=== PATIENT | female | born 1960 | race Caucasian/White ===

== ENCOUNTER 2019-02-21 00:25 | Emergency (ER) | payer OTHER ==
[2019-02-21 00:35] VITALS: BP 120/61; PULSE 60; TEMP 97.6; BMI 21.4
--- NOTE | 2019-02-21 00:41 | PDOC ---
History of Present Illness - General Chief Complaint: Pain, Acute Stated Complaint: ABD PAIN/N/V Time Seen by Provider: 02/21/19 00:38 History Source: Patient Exam Limitations: No Limitations - History of Present Illness Initial Comments: 02/21/19 00:42 This is a 58-year-old female who comes in complaining of nausea and vomiting and right upper quadrant abdominal pain after eating cheese cake this evening. Patient denies history of similar symptoms in the past. Patient otherwise is healthy. Allergies: as per nursing notes Past Medical History: none Social history: Lives with family. No smoking. No alcohol. No illicit drugs. Surgical history: None General: No fevers or chills, no weakness, no weight loss HEENT: No change in vision. No sore throat,. No ear pain CardioVascular: no chest discomfort. No shortness of breath Respiratory:No cough, or wheezing. Gastrointestinal: + nausea, + vomiting, no diarrhea or constipation, No rectal bleeding, + abdominal pain Genitourinary: No dysuria, hematuria, or frequency Musculoskeletal: No joint or muscle pain or swelling Neurologic: No headache, vertigo, dizziness or loss of consciousness Psychiatric: nor depression Skin: No rashes or easy bruising Endocrine: no increased thirst or abnormal weight change Allergic: no skin or latex allergy All other systems reviewed and normal Exam: General: Well-nourished well-developed individual, no acute distress HEENT: Throat: Normal, tonsils normal, no erythema or exudate Neck: Supple, no meningeal signs, no lymphadenopathy Eyes::Pupils equal reactive and round, extraocular motion intact Chest: Nontender to palpation Cardiac: S1-S2 normal, regular rate and rhythm, no murmurs rubs or gallops Respiratory: Lungs clear to auscultation bilateral Abdomen: Soft, nondistended, normal bowel sounds, there is tenderness on palpation in the right upper quadrant, there is no guarding or rebound. Extremities: Warm, dry, no cyanosis, clubbing, or edema Skin: No rashes Neuro: Alert and oriented x3, CN II - XII intact, nonfocal exam with normal strength, normal sensation, normal reflexes, normal gait, Psych: Normal mood and affect Assessment and plan: This is a 58-year-old female who comes in complaining of right upper quadrant pain after eating cheese cake. Patient will require workup to rule out gallbladder causes. CBC, comp, lipase ordered in addition to that patient is given Toradol, Zofran and IV fluids, ultrasound was ordered 02/21/19 03:38 Ultrasound was negative for any gallstones or any gallbladder pathology however was positive for renal pathology. There is dilatation of the right proximal ureter and a nonobstructing use stone was seen within the superior pole of the right kidney Patient's symptoms are secondary to a gallstone on the right is also was not actually visualized however patient did not want to stay any longer for a CAT scan and prescriptions for Percocet and Zofran were sent to patient's pharmacy. Patient was told to follow-up with a urologist next week. Past History - Past Medical History Allergies/Adverse Reactions: Allergies Allergy/AdvReac Type Severity Reaction Status Date / Time ampicillin Allergy Verified 02/21/19 00:31 gluten Allergy Verified 02/21/19 00:30 levofloxacin [From Levaquin] Allergy Verified 02/21/19 00:31 sulfamethoxazole Allergy Verified 02/21/19 00:31 [From Bactrim] tetracycline Allergy Verified 02/21/19 00:31 trimethoprim [From Bactrim] Allergy Verified 02/21/19 00:31 Home Medications: Ambulatory Orders Ondansetron [Zofran *Odt*] 8 mg SL TID #20 od.tablet 02/21/19 Oxycodone HCl/Acetaminophen [Percocet 5-325 mg Tablet] 1 - 2 tab PO Q4H #20 tablet MDD 8 02/21/19 Cardiac Disorders: Yes (MURMUR, MVP) COPD: No - Suicide/Smoking/Psychosocial Hx Smoking History: Never smoked *Physical Exam - Vital Signs Last Vital Signs Temp Pulse Resp BP Pulse Ox 97.6 F 60 18 120/61 100 02/21/19 00:32 02/21/19 00:32 02/21/19 00:32 02/21/19 00:32 02/21/19 00:32 ED Treatment Course - LABORATORY CBC & Chemistry Diagram: 02/21/19 00:45 02/21/19 00:45 *DC/Admit/Observation/Transfer Diagnosis at time of Disposition: Renal colic on right side - Discharge Dispostion Disposition: HOME Condition at time of disposition: Stable Decision to Admit order: No - Referrals Referrals: Silvio Izaguirre MD [Staff Physician] - - Patient Instructions Additional Instructions: For the pain take Percocet one or 2 tablets as often as every 4-6 hours. In addition to the Percocet take ibuprofen 3 tablets 3 times a day with food. If you develop nausea take Zofran 1 tablet let it dissolve underneath your tongue. You do not need to swallow it Stay well-hydrated to keep the urine flowing. Follow-up with a urologist if you need a urologist call Dr. Samuel Return to the emergency department immediately with ANY new, persistent or worsening symptoms. Continue any medications as previously prescribed by your physician. You should follow up with your primary doctor as soon as possible regarding today's emergency department visit. . Please make sure your doctor reviews the results of your emergency evaluation. Thank you for coming to the Emergency Department today for your care. It was a pleasure to see you today. Please note that your evaluation is INCOMPLETE until you follow-up with your doctor. - Post Discharge Activity
[2019-02-21] MEDS ORDERED: morphine CARPU-JECT 2 MG/1 ML DISP.SYRIN IVPUSH ONE (00:42)
[2019-02-21] MEDS ORDERED: SODIUM CHLORIDE 1,000 ML IV ONE (00:42)
[2019-02-21] MEDS ORDERED: KETOROLAC TROMETHAMINE 30 MG/1 ML VIAL IVPUSH ONE (00:42)
[2019-02-21] MEDS ORDERED: ONDANSETRON 4 MG/2 ML VIAL IVPB ONE (00:42)
[2019-02-21] MEDS ORDERED: KETOROLAC TROMETHAMINE 30 MG/1 ML VIAL ONE (00:47)
[2019-02-21] MEDS ORDERED: ONDANSETRON 4 MG/2 ML VIAL ONE (00:48)
[2019-02-21] MEDS ORDERED: morphine SULFATE 4 MG/ML VIAL ONE (00:48)
[2019-02-21 01:27] LABS: BASO % 0.5 % (0-2.0); EOS % 1.7 % (0-4.5); HEMATOCRIT 37.4 % (32.4-45.2); HEMOGLOBIN 12.7 GM/dL (10.7-15.3); LYMPH % 27.9 % (8-40); MCH 31.5 pg (25.7-33.7); MCHC 33.9 g/dl (32.0-36.0); MEAN CELL VOLUME 92.9 fl (80-96); MEAN PLT VOLUME 9.6 fl (7.5-11.1); MONO % 6.5 % (3.8-10.2); NEUT % 63.4 % (42.8-82.8); PLATELET COUNT 194 K/MM3 (134-434); RBC 4.02 M/mm3 (3.60-5.2); RDW 13.6 % (11.6-15.6)
[2019-02-21 01:48] LABS: ALK PHOS 55 U/L (45-117); ANION GAP 7 MMOL/L (8-16); BILIRUBIN,TOTAL 1.2 mg/dL (0.2-1); BLOOD UREA NITROGEN 20 mg/dL (7-18); CALCIUM 9.3 mg/dL (8.5-10.1); CHLORIDE 104 mmol/L (98-107); CO2 28 mmol/L (21-32); CREATININE 1.1 mg/dL (0.55-1.3); GLUCOSE,RANDOM 117 mg/dL (74-106); LIPASE 66 U/L (73-393); POTASSIUM 3.5 mmol/L (3.5-5.1); SGOT/AST 20 U/L (15-37); SGPT/ALT 24 U/L (13-61); SODIUM 139 mmol/L (136-145); TOT PROT 6.9 g/dl (6.4-8.2)
[2019-02-21 03:28] LABS: EPITHELIAL CELLS 5.6 /hpf
[2019-02-21] MEDS ORDERED: ONDANSETRON *ODT* 4 MG TABLET SL ONE (03:46)
[2019-02-21] MEDS ORDERED: ONDANSETRON *ODT* 4 MG TABLET ONE (03:48)
== END 2019-02-21 03:55 | disposition home or self-care (01) ==
LOC: FER 00:25
PROC: 3E0333Z Introduction of Anti-inflammatory into Peripheral Vein, Percutaneous Approach (ICD-10-PCS; principal; 2019-02-21)
PROC: 3E033NZ Introduction of Analgesics, Hypnotics, Sedatives into Peripheral Vein, Percutaneous Approach (ICD-10-PCS; 2019-02-21)
PROC: 3E033GC Introduction of Other Therapeutic Substance into Peripheral Vein, Percutaneous Approach (ICD-10-PCS; 2019-02-21)
PROC: 3E0337Z Introduction of Electrolytic and Water Balance Substance into Peripheral Vein, Percutaneous Approach (ICD-10-PCS; 2019-02-21)
DX: N20.0 Calculus of kidney (principal); R01.1 Cardiac murmur, unspecified; I34.1 Nonrheumatic mitral (valve) prolapse
CPT/HCPCS: 36415; 76705-TC; 80053; 81003; 81015; 83690; 85025; 99283-25; J7030; Q0162